=== PATIENT | male | born 1990 | race Caucasian/White ===

== ENCOUNTER 2019-08-18 11:31 | Emergency (ER) | payer OTHER, SELFPAY ==
[2019-08-18 11:33] VITALS: BP 106/70; PULSE 109; RESP 20; TEMP 36.4; O2SAT 100; BMI 24.5
--- NOTE | 2019-08-18 11:52 | CT_ITS ---
STUDY: CT ABDOMEN AND PELVIS WITH CONTRAST REASON FOR EXAM: Male, 29 years old. LUMP IN GROIN AREA X 5 WEEKS, PAIN WORSENING RADIATION DOSAGE (If Supplied By Facility): CTDIvol = ( 9.68 ) mGy, DLP = ( 500.15 ) mGycm TECHNIQUE: Transaxial images were obtained from the dome of the diaphragm to the symphysis pubis without oral contrast. IV 100mL Isovue-300 was administered. Sagittal and coronal images were reconstructed. Individualized dose optimization techniques were used for this CT. COMPARISON: None. FINDINGS: The visualized lung bases are unremarkable. The visualized portions of the heart are within normal limits. Normal liver. Normal gallbladder and extrahepatic biliary system. Normal spleen. Normal pancreas. Normal bilateral adrenal glands. Normal right kidney. Normal left kidney. Normal visualized stomach. Normal small intestine. There is marked abnormality within the majority of the sigmoid colon with diffuse submucosal thickening, mucosal irregularity and pericolonic inflammatory stranding. Findings are system with an acute colitis. There is a extraluminal fluid collection superior and anterior to the bladder containing air best seen on axial image 80 and coronal recon image 47. It measures 3.2 x 3.4 cm. The appendix is visualized and appears normal. Appendix best seen on coronal recon images 44 through 51. Normal abdominal aorta. Normal inferior vena cava. There are scattered subcentimeter retroperitoneal lymph nodes measuring up to 8 mm in short axis dimension. Diffuse irregular thickening of the anterior bladder wall consistent with cystitis. There is a small amount of free fluid in the dependent pelvis There is associated inflammatory thickening of the left rectus and oblique musculature Normal osseous structures. CT/Abdomen/Pelvis W IV Cont ONLY IMPRESSION: Marked abnormality involving the majority of the sigmoid colon with submucosal thickening, mucosal irregularity and extensive perisigmoidal inflammatory stranding. Findings are consistent with a colitis. Separate low-density likely abscess cavity is present anterior and superior to the bladder measuring 2.2 x 3.4 cm. Irregular abnormal thickening of the bladder wall suggests there is associated cystitis Abnormal asymmetric thickening of the left rectus and oblique musculature suggests associated myositis. No suspicious solid organ abnormality Small amount of free fluid in the dependent pelvis Electronically Signed: Jacoby Mays MD at 12:50 EDT , Service support ,
[2019-08-18] MEDS: 0.9% Normal Saline 1,000 ML 1000 ML IV (12:10)
--- NOTE | 2019-08-18 12:13 | ED.VISSUMM ---
- ER Visit Summary Date of Service: 08/18/19 Chief Complaint: Abdominal pain, lump left abdomen History of Present Illness: The patient is a 29 M with no primary care physician. Reports he has a lump in the left lower abdomen is been present for the past 5 weeks. Is always present. It waxes and wanes. He has a dull, burning pain Zeta 10 at worst and 4-10 currently. Is worsened by movement, eating, or bending. Is relieved by remaining still and ibuprofen. He denies any associated nausea or vomiting. Denies diarrhea. In fact he reports that he has been more constipated than usual. Last bowel was 2 days ago. Typically he goes twice a day. Denies any blood in his stools or black tarry stools. He reports he had dysuria for the past 2 weeks. He has frequency with normal volumes. Denies any penile discharge. No possible STD exposure. He reports that he had left testicular pain for the past 2 weeks. Physical Examination: Vitals: Stable. Afebrile. General: Well-nourished and well-developed. Head: Normocephalic atraumatic. Neck: Supple, no lymphadenopathy. No JVD. Nontender. Cardiovascular: Regular rate and rhythm. No murmurs. Respiratory: No respiratory distress. Clear to auscultation bilaterally. Abdominal: Soft, mild tenderness palpation left lower quadrant, nondistended, normal bowel sounds. No guarding, rebound, or peritoneal signs. There is a firmness in the left lower quadrant. This is not a hernia. : Normal circumcised male. No testicular tenderness. No epididymal tenderness. There are no hernias. He was examined while standing. Back: Nontender. Extremities: Nontender, no edema. Skin: Normal color, no rash. Neurologic: Alert and oriented ?3. Cranial nerves II through XII are intact. Normal strength and sensation. Psych: Normal affect. Test Results: CBC shows a white count of 15.1 with 81 segmented neutrophils and 9 lymphocytes. H&H is 9.1 and 29.3, platelets of 658. Chem-7 shows a chloride of 108. Clinical Impression(s) from Imaging Studies Abdomen/Pelvis CT 08/18/19 11:52 IMPRESSION: Marked abnormality involving the majority of the sigmoid colon with submucosal thickening, mucosal irregularity and extensive perisigmoidal inflammatory stranding. Findings are consistent with a colitis. Separate low-density likely abscess cavity is present anterior and superior to the bladder measuring 2.2 x 3.4 cm. Irregular abnormal thickening of the bladder wall suggests there is associated cystitis Abnormal asymmetric thickening of the left rectus and oblique musculature suggests associated myositis. No suspicious solid organ abnormality Small amount of free fluid in the dependent pelvis Electronically Signed: Jacoby Mays MD at 12:50 EDT , Service support , Emergency Department Course and Treatment: Patient had an IV placed. He is given liter normal saline. He is resting comfortably. He refused pain medications. He was given a dose of Zosyn IV. Treatment Plan: Patient was discussed with Dr. Benny Ross and with Dr. Thomas. As we do not have GI here he will be transferred to a another hospital. He was discussed with [facility]. Disposition: Transferred in stable condition. Impression: 1. Sigmoid colitis. 2. Intra-abdominal abscess. This note was generated with [employer] dictation software. It may contain incorrect words, spelling, and punctuation that were not noted in review of the chart prior to signing ED Disposition - Plan for ED Patient: Referrals: Care Physician,No Primary [Primary Care Provider] -
[2019-08-18 12:17] LABS: Absolute Lymphocyte Count 1.36 X10^3/uL (0.83-4.51); Absolute Neutrophil Count 12.3 X10^3/uL (2.0-7.7); Basophil# 0.05 X10^3/uL; Basophil% 0.3 % (0-1); Eosinophil# 0.09 X10^3/uL; Eosinophils% 0.6 % (0-5); Hematocrit 29.3 % (40-54); Hemoglobin 9.1 g/dL (13.0-16.5); Lymphocyte # 1.36 X10^3/ul (4.0); Mean Corp Hgb Conc 31.1 g/dL (32-36); Mean Corpuscular Hgb 24.9 pg (27.0-32.0); Mean Corpuscular Volume 80.1 fL (80-94); Mean Platelet Vol. 8.9 fl (6.2-12.0); Monocyte# 1.26 X10^3/uL; Monocyte% 8.3 % (0-10); NRBC Flagged by Analyzer 0 % (0-5); Neutrophil % 81.3 % (47-70); Platelet Count 658 K/mm3 (150-450); RBC Distribution Width CV 15.8 % (11.6-14.6); RBC Distribution Width SD 45.6 fl (35.1-43.9); Red Blood Count 3.66 M/mm3 (4.6-6.2); White Blood Count 15.1 K/mm3 (4.4-11.0)
[2019-08-18 12:29] LABS: Anion Gap 6 (5-15); BUN 8 mg/dL (7-18); BUN/Creat Ratio 11.4 RATIO (10-20); Calcium,Total 9.3 mg/dL (8.5-10.1); Chloride 108 mmol/L (98-107); EST Glomerular Filtration Rate 141 mL/min (>60); Est Glom Filt Rate - Afr Amer 170 mL/min (>60); Estimated Creatinine Clearance 140.51 ml/min; Glucose 93 mg/dL (74-106); Potassium 3.6 mmol/L (3.5-5.1); Sodium Level 142 mmol/L (136-145)
[2019-08-18 13:31] LABS: Bacteria 0 SEEN /hpf (None Seen); Mucous, Urine 0 SEEN /hpf (<or=2+); Red Blood Cells-Urine 0 SEEN /hpf (0-5); Squamous Epithelial Cells - UA 0 SEEN /hpf (0-5); White Blood Cells 0 SEEN /hpf (0-5)
[2019-08-18 13:32] VITALS: BP 125/78; PULSE 94; RESP 16; TEMP 37.1; O2SAT 99
[2019-08-18 13:35] LABS: Color, Urine Yellow (Yellow); Glucose, Dipstick Normal (Normal); Ketone-Dipstick 15 mg/dl (Negative); Leukocyte Esterase-Dipstick Negative /ul (Negative); Nitrite-Dipstick Negative (Negative); Occult Blood-Urine 10 /ul (Negative); Protein-Dipstick 30 mg/dl (Negative); Urine Bilirubin Dipstick Negative (Negative); Urine Clarity Sl. Cloudy (Clear); Urine Urobilinogen 1 mg/dl (Normal); Urine pH 6.5 (5.0 - 8.0)
--- NOTE | 2019-08-18 14:06 | NURSING ---
FAXED FACESHEET AND CT RESULTS TO YVETTE ALLEN
[2019-08-18 14:39] LABS: Probe Check PASS; Specimen Processing Control PASS
[2019-08-18 15:20] VITALS: BP 120/85; PULSE 100; RESP 16; O2SAT 97
--- NOTE | 2019-08-18 15:42 | NURSING ---
ATTEMPTED TO CALL [facility]. WAS ON HOLD 10 MIN AND COULDN'T LEAVE A MESSAGE. YVETTE ALLEN ASKED WE DO THIS
--- NOTE | 2019-08-18 16:39 | NURSING ---
ACCEPTED AT [facility]. WAITING FOR BED
--- NOTE | 2019-08-18 17:08 | NURSING ---
farshad lafleur [id number] nurse to nurse [phone]
--- NOTE | 2019-08-18 17:40 | NURSING ---
CALLED PHYSICANS. ETA IS 75 MIN
== END 2019-08-18 18:33 | disposition short-term general hospital (02) ==
LOC: ED 12:44
PROVIDERS: Emergency Provider Emergency Medicine
DX: K52.9 Noninfective gastroenteritis and colitis, unspecified (principal); L02.818 Cutaneous abscess of other sites; F17.200 Nicotine dependence, unspecified, uncomplicated
CPT/HCPCS: 74177; 80048; 81001; 85025; 87635; 96361; 96365; 96366; 99284; G2023; J7030; J7040; Q9967; U0003

== ENCOUNTER 2019-09-11 10:10 | Emergency (ER) | payer OTHER, SELFPAY ==
[2019-09-11 10:12] VITALS: BP 134/69; PULSE 115; RESP 16; TEMP 36.6; O2SAT 99; BMI 24.2
--- NOTE | 2019-09-11 10:43 | CT_ITS ---
STUDY: CT ABDOMEN AND PELVIS WITH CONTRAST REASON FOR EXAM: Male, 29 years old. COLON PAIN, S/P COLONIC ABCESS WITH JASON DRAIN 3 WKS AGO, STILL HAS DRAIN IN, N/V RADIATION DOSAGE (If Supplied By Facility): CTDIvol = ( 11.39 ) mGy, DLP = ( 477.84 ) mGycm TECHNIQUE: Transaxial images were obtained from the dome of the diaphragm to the symphysis pubis without oral contrast. Oral and amp; IV Gastrografin and amp; 100mL Isovue-370 was administered. Sagittal and coronal images were reconstructed. Individualized dose optimization techniques were used for this CT. COMPARISON: August 18, 2019. FINDINGS: The visualized lung bases are unremarkable. The visualized portions of the heart are within normal limits. Normal liver. Normal gallbladder and extrahepatic biliary system. Normal spleen. Normal pancreas. Normal bilateral adrenal glands. Normal right kidney. Normal left kidney. Normal visualized stomach. Normal small intestine. Diffuse fecal retention in the colon. There is wall thickening of the sigmoid colon with areas of heterogeneity, likely related to abscesses. There is a percutaneous drain in the pelvis with reduction of previously noted abscess. The appendix is visualized and appears normal. Normal abdominal aorta. Normal inferior vena cava. Normal retroperitoneum. Normal urinary bladder. Gas-containing collections or a loculated collection is noted of the lower left anterior abdominal wall. Spondylolysis of L5. CT/Abdomen/Pelvis WITH Contrast IMPRESSION: Diffuse fecal retention in the colon. There is wall thickening of the sigmoid colon with areas of heterogeneity, likely related to abscesses. There is a percutaneous drain in the pelvis. Left lower abdominal wall abscess. Electronically Signed: Javier Bhardwaj DO at 13:08 EDT Tel [phone], Service support ,
--- NOTE | 2019-09-11 10:55 | ED.VIS.GI ---
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 Patient was admitted to [facility] in 08/17 and had a JASON drain placed the following day. Patient was discharged home from [facility] on 08/24/2019 on a course of cefdinir, Flagyl and Diflucan. He is also been taking Colace twice a day. He is presenting today because he is having worsening pain in his left lower quadrant, just lateral to his JASON drain. He states the pain is been worsening slightly over the last week which he describes as an ache but became sharp and burning yesterday which progressed today. He denies any associated fever. He denies any urinary symptoms. This morning he had nausea with one episode of vomiting. He states since this all started he has been having watery bowel movements with mild red blood in them. Patient took Tylenol for pain today with no relief. He has been following with infectious disease for this abscess and is actually scheduled to have an abscessogram on Friday for further evaluation of the abscess. He is not followed up with GI yet because he was told that it want a scope until the abscess has resolved. Patient denies any other complaints at this time. Past Medical History - Allergies and Home Meds Allergies/Adverse Reactions: Allergies No Known Allergies Allergy (Verified 09/11/19 10:14) Primary Care Physician: Care Physician,No Primary [Primary Care Provider] - Past Medical History: - Surgical History: - - JASON drain- abscess lower abdomen Smoking Status: Current every day smoker Review of Systems General: Denies: Chills, Fever, Sweats Eyes: Denies: Visual changes - bilaterally, Diplopia ENT: Denies: Rhinorrhea, Sore throat Cardiovascular: Denies: Chest pain, Palpitations Respiratory: Denies: Dyspnea, Cough, Dyspnea on exertion Gastrointestinal: Reports: Abdominal pain. Denies: Nausea, Vomiting, Diarrhea, Melena, Hematochezia Genitourinary: Denies: Dysuria, Hematuria, Frequency Musculoskeletal: Denies: Back pain, Extremity Pain Skin: Denies: Rash, Wounds Neurological: Denies: Headache, Weakness, Numbness Physical Exam Vital Signs/Narrative: Vital Signs Temp Pulse Resp BP Pulse Ox 09/11/19 10:12 97.8 F 115 H 16 134/69 H 99 Inital Vital Signs reviewed: Yes General: Well nourished, Well developed, No Acute Distress Head: Normocephalic, Atraumatic Eyes: Perrl, EOMI ENT: Moist mucous membranes, No rhinorrhea Neck: Supple, Nontender Cardiovascular: Regular rate, Regular rhythm, No murmurs Respiratory: No distress, CTA bilaterally, Chest nontender Abdomen: Soft, Nondistended, Normal bowel sounds, Tender - Lower abdomen, left of midline and LLQ, Mass - lower abdomen, left of JASON drain. Negative for: Guarding, Rebound tenderness Back: Nontender, Normal Inspection. Negative for: CVA tenderness Extremities: Nontender, No edema Skin: Normal color, No rash Neurological: Alert, Oriented x3, Cranial nerves II-XII grossly intact, Normal Strength, Normal Sensation Psychological: Normal affect, Normal Mood Diagnostic/Tx/Re-eval Clinical Impression(s) from Imaging Studies Abdomen/Pelvis CT 09/11/19 10:43 IMPRESSION: Diffuse fecal retention in the colon. There is wall thickening of the sigmoid colon with areas of heterogeneity, likely related to abscesses. There is a percutaneous drain in the pelvis. Left lower abdominal wall abscess. Electronically Signed: Javier Bhardwaj DO at 13:08 EDT Tel [phone], Service support , Laboratory Data 09/11/19 09/11/19 09/11/19 10:30 10:30 12:04 WBC 10.3 RBC 4.20 L Hgb 10.8 L Hct 34.0 L MCV 81.0 MCH 25.7 L MCHC 31.8 L RDW Std Deviation 55.9 H RDW Coeff of Khari 19.4 H Plt Count 492 H MPV 9.6 Immature Gran % (Auto) 0.300 Neut % (Auto) 73.5 H Lymph % (Auto) 17.3 L Mellette % (Auto) 6.8 Eos % (Auto) 1.7 Baso % (Auto) 0.4 Absolute Neuts (auto) 7.6 Absolute Lymphs (auto) 1.77 Nucleated RBC % 0 Sodium 138 Potassium 3.8 Chloride 105 Carbon Dioxide 27.0 Anion Gap 6 BUN 6 L Creatinine 0.85 Estim Creat Clear Calc 115.72 Est GFR (MDRD) Af Amer 137 Est GFR (MDRD) Non-Af 113 BUN/Creatinine Ratio 7.1 L Glucose 101 Calcium 9.3 Total Bilirubin 0.40 AST 9 L ALT 11 L Alkaline Phosphatase 58 Total Protein 7.9 Albumin 3.3 Globulin 4.6 H Albumin/Globulin Ratio 0.7 L Urine Color Yellow Urine Clarity Clear Urine pH 6.5 Ur Specific Merlin 1.010 Urine Protein Negative Urine Glucose (UA) Normal Urine Ketones Negative Urine Occult Blood Negative Urine Nitrite Negative Urine Bilirubin Negative Urine Urobilinogen Normal Ur Leukocyte Esterase Negative Urine RBC 0 SEEN Urine WBC 0 SEEN Ur Squamous Epith Cells 0 SEEN Urine Bacteria 0 SEEN Urine Mucus 0 SEEN - Medical Decision Making Patient is evaluated for worsening pain in his left lower abdomen. He has a recent diagnosis of colonic abscess with a JASON drain in place. He is on antibiotics for this but had acute worsening of his pain over the last few days. Patient has a palpable mass of his lower abdomen which coincides with abdominal wall abscess seen on CT today. In addition CT does show a complex abscess in the area. Given patient is having worsening pains and now also has an abdominal wall abscess I believe he needs transfer back to [facility] where he was initially evaluated. He is otherwise hemodynamically stable with a normal white blood cell count. He does not meet criteria for sepsis. Given patient is already on oral antibiotics, I will defer antibiotics until he can be evaluated by his ID team at [facility]. He is given morphine, Zofran and fluids for symptom control in the emergency room. Patient is accepted to [facility] by the medicine service. He is agreeable to transfer. He stable at time of disposition. ED Disposition - Plan for ED Patient: Disposition: [facility] Diagnosis: Abscess of sigmoid colon, Abdominal wall abscess Referrals: Care Physician,No Primary [Primary Care Provider] -
[2019-09-11 11:05] LABS: Absolute Lymphocyte Count 1.77 X10^3/uL (0.83-4.51); Absolute Neutrophil Count 7.6 X10^3/uL (2.0-7.7); Basophil# 0.04 X10^3/uL; Basophil% 0.4 % (0-1); Eosinophil# 0.17 X10^3/uL; Eosinophils% 1.7 % (0-5); Hemoglobin 10.8 g/dL (13.0-16.5); Lymphocyte # 1.77 X10^3/ul (4.0); Lymphocyte % 17.3 % (19-41); Mean Corp Hgb Conc 31.8 g/dL (32-36); Mean Corpuscular Hgb 25.7 pg (27.0-32.0); Mean Platelet Vol. 9.6 fl (6.2-12.0); Monocyte% 6.8 % (0-10); NRBC Flagged by Analyzer 0 % (0-5); Neutrophil # 7.55 X10^3/uL (2.7-7.7); Neutrophil % 73.5 % (47-70); Platelet Count 492 K/mm3 (150-450); RBC Distribution Width CV 19.4 % (11.6-14.6); RBC Distribution Width SD 55.9 fl (35.1-43.9); White Blood Count 10.3 K/mm3 (4.4-11.0)
[2019-09-11 11:13] LABS: ALB/GLOB Ratio 0.7 RATIO (0.9-2.4); AST(SGOT) 9 U/L (15-37); Alanine Aminotransfer ALT/SGPT 11 U/L (16-61); Albumin, Serum 3.3 g/dL (3.2-5.0); Alkaline Phosphatase 58 U/L (45-117); Anion Gap 6 (5-15); BUN 6 mg/dL (7-18); BUN/Creat Ratio 7.1 RATIO (10-20); Calcium,Total 9.3 mg/dL (8.5-10.1); Chloride 105 mmol/L (98-107); Creatinine, Serum 0.85 mg/dL (0.70-1.30); EST Glomerular Filtration Rate 113 mL/min (>60); Est Glom Filt Rate - Afr Amer 137 mL/min (>60); Estimated Creatinine Clearance 115.72 ml/min; Globulin 4.6 g/dL (2.2-4.2); Glucose 101 mg/dL (74-106); Potassium 3.8 mmol/L (3.5-5.1); Protein, Total 7.9 g/dL (6.4-8.2); Sodium Level 138 mmol/L (136-145)
[2019-09-11] MEDS: 0.9% Normal Saline 1,000 ML 1000 ML IV (11:13)
[2019-09-11] MEDS: Morphine 4 MG/ML Syringe IV (11:13)
[2019-09-11] MEDS: Ondansetron 4 MG/2 ML Vial IV (11:13)
[2019-09-11 12:06] VITALS: BP 131/59; PULSE 74; RESP 16; TEMP 36.8; O2SAT 98
[2019-09-11 12:09] LABS: Bacteria 0 SEEN /hpf (None Seen); Mucous, Urine 0 SEEN /hpf (<or=2+); Red Blood Cells-Urine 0 SEEN /hpf (0-5); Squamous Epithelial Cells - UA 0 SEEN /hpf (0-5); White Blood Cells 0 SEEN /hpf (0-5)
[2019-09-11 12:17] LABS: Color, Urine Yellow (Yellow); Glucose, Dipstick Normal (Normal); Ketone-Dipstick Negative (Negative); Leukocyte Esterase-Dipstick Negative /ul (Negative); Nitrite-Dipstick Negative (Negative); Occult Blood-Urine Negative /ul (Negative); Protein-Dipstick Negative (Negative); Urine Bilirubin Dipstick Negative (Negative); Urine Clarity Clear (Clear); Urine Urobilinogen Normal (Normal); Urine pH 6.5 (5.0 - 8.0)
[2019-09-11 14:21] VITALS: BP 97/74; PULSE 72; RESP 14; O2SAT 98
--- NOTE | 2019-09-11 14:31 | ED.RN ---
[facility] ETA- 60 MINUTES
[2019-09-11 15:50] VITALS: BP 97/74; PULSE 72; RESP 16; TEMP 36.8; O2SAT 98
== END 2019-09-11 16:07 | disposition short-term general hospital (02) ==
PROVIDERS: Emergency Provider Emergency Medicine
DX: K63.0 Abscess of intestine (principal); L02.211 Cutaneous abscess of abdominal wall; F17.200 Nicotine dependence, unspecified, uncomplicated
CPT/HCPCS: 74177; 80053; 81001; 85025; 96374; 96375; 99285; J7030; Q9967; A4216; J2405

== ENCOUNTER 2019-09-20 21:31 | Emergency (ER) | payer OTHER, SELFPAY ==
[2019-09-20 21:32] VITALS: BP 121/92; PULSE 133; RESP 16; TEMP 37.3; O2SAT 98; BMI 22.6
[2019-09-20 22:00] LABS: Absolute Lymphocyte Count 2.45 X10^3/uL (0.83-4.51); Absolute Neutrophil Count 13.1 X10^3/uL (2.0-7.7); Basophil# 0.05 X10^3/uL; Basophil% 0.3 % (0-1); Eosinophil# 0.39 X10^3/uL; Eosinophils% 2.3 % (0-5); Hematocrit 33.6 % (40-54); Hemoglobin 10.8 g/dL (13.0-16.5); Lymphocyte # 2.45 X10^3/ul (4.0); Lymphocyte % 14.4 % (19-41); Mean Corp Hgb Conc 32.1 g/dL (32-36); Mean Corpuscular Hgb 25.5 pg (27.0-32.0); Mean Corpuscular Volume 79.4 fL (80-94); Monocyte% 5.3 % (0-10); NRBC Flagged by Analyzer 0 % (0-5); Neutrophil # 13.13 X10^3/uL (2.7-7.7); Neutrophil % 77.3 % (47-70); POSITIVE COUNT YES; RBC Distribution Width SD 53.9 fl (35.1-43.9); Red Blood Count 4.23 M/mm3 (4.6-6.2)
[2019-09-20 22:03] LABS: Platelet Count 853 K/mm3 (150-450)
[2019-09-20 22:17] LABS: Anion Gap 5 (5-15); BUN 4 mg/dL (7-18); BUN/Creat Ratio 5.3 RATIO (10-20); Calcium,Total 9.7 mg/dL (8.5-10.1); Chloride 106 mmol/L (98-107); Creatinine, Serum 0.75 mg/dL (0.70-1.30); EST Glomerular Filtration Rate 130 mL/min (>60); Est Glom Filt Rate - Afr Amer 157 mL/min (>60); Estimated Creatinine Clearance 131.14 ml/min; Glucose 106 mg/dL (74-106); Potassium 3.3 mmol/L (3.5-5.1); Sodium Level 141 mmol/L (136-145)
--- NOTE | 2019-09-20 22:49 | ED.VIS.GEN ---
History of Present Illness Chief Complaint: Nausea/Vomiting Informant: Patient Onset: Days Context: Gradual Onset Current Severity: Moderate Maximum Severity: Moderate Narrative: Present secondary to nausea and vomiting. Patient was recently treated and evaluated at [facility] for what was felt to be an abscess secondary to a fistula between the sigmoid colon and his bladder. He states when they went back to do a colonoscopy they actually found evidence of colon cancer in his sigmoid colon. He had a sigmoid colon resection and a colostomy placed last . He came home from the hospital Friday night. He states Friday morning he was able to eat a small amount but felt nauseated afterward. Since that time he has had nausea and vomiting. He does report some output in his colostomy bag. He denies fever or chills. - Past Medical History (1) Colon cancer Status: Acute Past Medical History - Allergies and Home Meds Allergies/Adverse Reactions: Allergies No Known Allergies Allergy (Verified 09/20/19 21:35) Primary Care Physician: Care Physician,No Primary [Primary Care Provider] - Prior records reviewed: Yes Surgical History: - - JASON drain- abscess lower abdomen Lives: Spouse/ Significant Other Smoking Status: Current every day smoker Review of Systems General: Denies: Chills, Fever Eyes: Denies: Visual changes - bilaterally ENT: Denies: Bilateral ear pain Cardiovascular: Denies: Chest pain Respiratory: Denies: Dyspnea, Cough Gastrointestinal: Reports: Abdominal pain, Nausea, Vomiting Genitourinary: Denies: Dysuria Musculoskeletal: Denies: Swelling, Extremity Pain Skin: Denies: Rash Hematologic: Denies: Easy bruising, Easy bleeding Allergy: Denies: Uticaria Physical Exam Vital Signs/Narrative: Vital Signs Temp Pulse Resp BP Pulse Ox 09/20/19 21:32 99.2 F H 133 H 16 121/92 H 98 Inital Vital Signs reviewed: Yes General: Well nourished, Well developed Head: Normocephalic ENT: Moist mucous membranes Neck: Supple Cardiovascular: Tachycardia Respiratory: No distress, CTA bilaterally Abdomen: Soft, Nontender, Hypoactive bowel sounds, - - Surgical sites clean and intact. Colostomy in place with liquid output. Skin: Normal color Neurological: Alert, Oriented x3 Psychological: Normal affect Diagnostic/Tx/Re-eval Impressions Abdomen/Pelvis CT 09/21/19 23:55 IMPRESSION: Status post left hemicolectomy with transverse-low sigmoid colon anastomosis and a diverting ileostomy in the right lower quadrant of the abdomen. Dilated small bowel loops extend to the ileostomy site, suggesting ileus rather than mechanical obstruction. Inflammatory changes in the pelvis, with minimal free fluid in the posterior cul-de-sac but no demonstrated abscess. Small amount of free intraperitoneal air, expected finding given history of recent surgery. Small bilateral pleural effusions. Electronically Signed: Madhu Villalpando MD at 2:41 EDT , Service support , 09/21/19 23:55 Abdomen/Pelvis WITH Contrast [CT] Stat Laboratory Results 09/20/19 09/20/19 09/20/19 21:49 21:49 23:55 WBC 17.0 H RBC 4.23 L Hgb 10.8 L Hct 33.6 L MCV 79.4 L MCH 25.5 L MCHC 32.1 RDW Std Deviation 53.9 H RDW Coeff of Khari 19.0 H Plt Count 853 H* MPV 9.0 Immature Gran % (Auto) 0.400 Neut % (Auto) 77.3 H Lymph % (Auto) 14.4 L Lassen % (Auto) 5.3 Eos % (Auto) 2.3 Baso % (Auto) 0.3 Absolute Neuts (auto) 13.1 H Absolute Lymphs (auto) 2.45 Nucleated RBC % 0 [address] Review May foll Sodium 141 Potassium 3.3 L Chloride 106 Carbon Dioxide 30.0 Anion Gap 5 BUN 4 L Creatinine 0.75 Estim Creat Clear Calc 131.14 Est GFR (MDRD) Af Amer 157 Est GFR (MDRD) Non-Af 130 BUN/Creatinine Ratio 5.3 L Glucose 106 Calcium 9.7 Urine Color Yellow Urine Clarity Sl. Cloudy Urine pH 6.0 Ur Specific [place] 1.025 Urine Protein 30 H Urine Glucose (UA) Normal Urine Ketones 150 H Urine Occult Blood 25 H Urine Nitrite Negative Urine Bilirubin Negative Urine Urobilinogen Normal Ur Leukocyte Esterase 25 H Urine RBC 0-5 SEEN Urine WBC 10-25 SEEN Ur Squamous Epith Cells 0 SEEN Calcium Oxalate Crystal RARE Amorphous Sediment 1+ Urine Bacteria 2+ Hyaline Casts 5-10 SEEN Fine Granular Casts 0-5 SEEN Urine Mucus 0 SEEN - Medical Decision Making Patient was initially given IV fluids along with Zofran and tramadol. On repeat evaluation patient has been able to tolerate his p.o. medication, however still felt nauseated. He did agree to try to drink p.o. contrast for his CT scan. He took a few sips but states he felt very nauseated and full, therefore did not drink anything further. He was given a dose of Reglan. Test results are discussed with the patient. Urine does show 2+ bacteria with 10-25 white cells. Urine culture was sent and he was given a dose of IV Rocephin. CT scan is consistent with ileus. Patient has had vomiting for 2 days with continued nausea here in the emergency room. I do feel that he will require admission and because this is a postop condition I will speak with [facility] for transfer as this is where his surgery was performed. ED Disposition - Plan for ED Patient: Disposition: [facility] Diagnosis: Postoperative ileus, Vomiting, UTI (urinary tract infection) Referrals: Care Physician,No Primary [Primary Care Provider] -
[2019-09-20] MEDS: 0.9% Normal Saline 1,000 ML 1000 ML IV (23:14)
[2019-09-20] MEDS: Ondansetron 4 MG/2 ML Vial IV (23:14)
[2019-09-20] MEDS: traMADol 50 MG Tablet PO (23:45)
[2019-09-20 23:47] VITALS: BP 123/87; PULSE 82; RESP 17; TEMP 36.8; O2SAT 99
[2019-09-20 23:49] VITALS: BP 123/87; PULSE 82; RESP 17; TEMP 36.8; O2SAT 99
[2019-09-21 00:03] LABS: Mucous, Urine 0 SEEN /hpf (<or=2+); Squamous Epithelial Cells - UA 0 SEEN /hpf (0-5)
[2019-09-21 00:07] LABS: Color, Urine Yellow (Yellow); Glucose, Dipstick Normal (Normal); Leukocyte Esterase-Dipstick 25 /ul (Negative); Nitrite-Dipstick Negative (Negative); Occult Blood-Urine 25 /ul (Negative); Protein-Dipstick 30 mg/dl (Negative); Specific Gravity, Urine 1.025 (1.002-1.030); Urine Bilirubin Dipstick Negative (Negative); Urine Clarity Sl. Cloudy (Clear); Urine Urobilinogen Normal (Normal)
[2019-09-21 00:12] LABS: Ketone-Dipstick 150 mg/dl (Negative)
[2019-09-21 00:21] LABS: Fine Granular Cast- Urine 0-5 SEEN /lpf (0-5); White Blood Cells 10-25 SEEN /hpf (0-5)
[2019-09-21 00:22] LABS: Amorphous Sediment 1+
[2019-09-21 00:24] LABS: Bacteria 2+ /hpf (None Seen); Calcium Oxalate Crystals Ur RARE /hpf (<or=2+)
[2019-09-21] MEDS: Ceftriaxone 1 GM/50 ML BAG IV (00:24)
[2019-09-21 00:26] LABS: Red Blood Cells-Urine 0-5 SEEN /hpf (0-5)
[2019-09-21 00:27] LABS: Hyaline Cast 5-10 SEEN /lpf (0-5)
[2019-09-21 00:39] VITALS: BP 126/95; PULSE 106; RESP 16; TEMP 37.1; O2SAT 97
[2019-09-21] MEDS: 0.9% Normal Saline 1,000 ML 150 ML IV (00:42)
[2019-09-21] MEDS: Metoclopramide 10 MG Tablet PO (01:31)
[2019-09-21 02:00] VITALS: BP 100/52; PULSE 60; RESP 13; TEMP 36.9; O2SAT 98
[2019-09-21 03:00] VITALS: BP 133/99; PULSE 103; RESP 18; TEMP 36.9; O2SAT 97
[2019-09-21] MEDS: proMETHazine 25 MG/ML Syringe 12.5 MG IV (03:03)
[2019-09-21 04:02] VITALS: BP 133/99; PULSE 91; RESP 13; TEMP 36.9; O2SAT 96
[2019-09-21 12:19] LABS: Pathologist Review Reviewed
--- NOTE | 2019-09-21 23:55 | CT_ITS ---
STUDY: CT ABDOMEN AND PELVIS WITH CONTRAST REASON FOR EXAM: Male, 29 years old. ABD PAIN WITH N/V SINCE SAT, COLECTOMY WITH COLOSTOMY, ON FRIDAY DUE TO COLON CA RADIATION DOSAGE (If Supplied By Facility): CTDIvol = ( 8.89 ) mGy, DLP = ( 387.19 ) mGycm TECHNIQUE: Transaxial images were obtained from the dome of the diaphragm to the symphysis pubis without oral contrast. Oral and amp; IV Breeza and amp; 100mL Isovue-370 was administered. Sagittal and coronal images were reconstructed. Individualized dose optimization techniques were used for this CT. COMPARISON: CT scan 09/11/2019 and 08/18/2019. FINDINGS: There are small bilateral pleural effusions. There is mild atelectasis the visualized posterior lung bases bilaterally. The visualized portions of the heart are within normal limits. There is a small amount of free intraperitoneal air, consistent with history of recent surgery. Overlying pathologic etiology such as bowel perforation cannot be excluded entirely but is thought to be less likely. Normal liver. Normal gallbladder and extrahepatic biliary system. Normal spleen. Normal pancreas. Normal bilateral adrenal glands. Normal right kidney. Normal left kidney. Normal visualized stomach. The patient is status post left hemicolectomy with a transverse colon-distal sigmoid colon anastomosis. A there is diffuse fat infiltration in the pelvis, including the region of anastomosis, which may represent residual inflammation from previously demonstrated infection. There is minimal free fluid in the adjacent cul-de-sac, however, there is no visualized abscess in this region. There is a diverting loop ileostomy in the right lower quadrant of the abdomen. There is dilatation of small bowel loops, with diameters ranging up to 4.3 cm. Dilated bowel extends to the ileostomy site, with no evidence for mechanical small bowel obstruction. These findings are likely represent ileus. The appendix is seen on axial images 68-77 and it appears normal. Normal abdominal aorta. Normal inferior vena cava. Normal retroperitoneum. Normal urinary bladder. Normal abdominal wall. Normal osseous structures. CT/Abdomen/Pelvis WITH Contrast IMPRESSION: Status post left hemicolectomy with transverse-low sigmoid colon anastomosis and a diverting ileostomy in the right lower quadrant of the abdomen. Dilated small bowel loops extend to the ileostomy site, suggesting ileus rather than mechanical obstruction. Inflammatory changes in the pelvis, with minimal free fluid in the posterior cul-de-sac but no demonstrated abscess. Small amount of free intraperitoneal air, expected finding given history of recent surgery. Small bilateral pleural effusions. Electronically Signed: Madhu Villalpando MD at 2:41 EDT , Service support ,
== END 2019-09-21 04:03 | disposition short-term general hospital (02) ==
PROVIDERS: Emergency Provider Emergency Medicine
DX: K56.7 Ileus, unspecified (principal); R11.2 Nausea with vomiting, unspecified; N39.0 Urinary tract infection, site not specified; F17.200 Nicotine dependence, unspecified, uncomplicated; Z93.3 Colostomy status
CPT/HCPCS: 74177; 80048; 81001; 85025; 87040; 87086; 96361; 96365; 96366; 96375; 99284; J7030; Q9967; A4216; J2405